=== PATIENT | male | born 1990 | race Caucasian/White ===

== ENCOUNTER 2018-04-28 00:16 | Emergency (ER) | payer OTHER ==
[2018-04-28] MEDS: ACETAMINOPHEN 325 MG TAB PO (01:51)
== END 2018-04-28 05:32 | disposition home or self-care (01) ==
LOC: FTE 00:16
DX: S40.022A Contusion of left upper arm, initial encounter (principal); F17.210 Nicotine dependence, cigarettes, uncomplicated; W11.XXXA Fall on and from ladder, initial encounter; Y92.9 Unspecified place or not applicable
CPT/HCPCS: 29125; 70450; 71045; 72100; 72125; 72220; 73030-RT; 73060; 73110-LT; 73610-RT; 99284-25

== ENCOUNTER 2018-06-15 08:29 | Emergency (ER) | payer OTHER ==
[2018-06-15] MEDS: LORAZEPAM 1 MG TAB PO (09:41)
== END 2018-06-15 11:50 | disposition home or self-care (01) ==
LOC: E/R 08:29
DX: F10.230 Alcohol dependence with withdrawal, uncomplicated (principal); F17.210 Nicotine dependence, cigarettes, uncomplicated
CPT/HCPCS: 99283; Z7502